=== PATIENT | female | born 1995 | race Caucasian/White ===

== ENCOUNTER 2022-06-26 00:37 | Emergency (ER) | payer OTHER, SELFPAY ==
[2022-06-26] VITALS (9 sets, daily range): BP systolic 126–129; BP diastolic 82–90; PULSE 114; RESP 20; TEMP 36.6; O2SAT 97–100
--- NOTE | 2022-06-26 00:56 | ED.URI ---
HPI - URI/Sore Throat General Chief Complaint: Upper Respiratory Infection Stated Complaint: sickness Source: patient Mode of arrival: ambulatory Limitations: no limitations History of Present Illness HPI Narrative: This is a 26-year-old female presents with 2 to 3 day history of cough congestion has headache I had tried [id number] NSAIDs to help with minimal relief, currently there is no fever chills no nausea vomiting there is no shortness of breath no abdominal pain no chest pain. MD elicited complaint: cough and nasal congestion Onset (ago): day(s) Consistency: constant Severity: moderate Description of mucous: clear Related Data Allergies Allergy/AdvReac Type Severity Reaction Status Date / Time No Known Allergies Allergy Verified 06/26/22 00:41 Review of Systems Review of Systems: All systems reviewed & are unremarkable except as noted in HPI and below PMFSH Past Medical History Medical History Patient denies medical problems Exam Const: General: healthy appearing Nutritional Appearance: well nourished HENMT: Head: normal to inspection General nose exam: Normal external nose present Face and sinus: normal facial exam Mouth: Yes Normal oral and palatal mucosa present Eyes: Conjunctivae: conjunctivae normal Neck: Neck: normal visual inspection Chest: Chest palpation & inspection: normal inspection of the chest Resp: Effort & Inspection: normal respiratory effort Cardio: Rate: regular rate Rhythm: regular rhythm GI: GI Palp: Yes Soft to palpation Urinary Catheter: Urinary Catheter: patent and draining Skin: General skin exam: normal color Rashes: no rashes Neuro: General: patient oriented x3 Extrem: General: normal to inspection Course Course Emergency Course: patient received IV Toradol for headache IV fluids and labs reviewed with patient. Vital Signs Vital signs: Vital Signs Temperature 36.6 C 06/26/22 00:38 Pulse Rate 114 H 06/26/22 00:38 Respiratory Rate 20 06/26/22 00:38 Blood Pressure 126/82 06/26/22 00:38 Pulse Oximetry 97 06/26/22 00:38 Oxygen Delivery Room Air 06/26/22 00:38 Temperature 36.6 C 06/26/22 00:38 Pulse Rate 114 H 10 00:38 Respiratory Rate 20 06/26/22 00:38 Blood Pressure 126/82 06/26/22 00:38 Pulse Oximetry 97 06/26/22 00:38 Oxygen Delivery Room Air 06/26/22 00:38 Critical Care Time Critical Care Time Critical Care Time: No Discharge Plan Discharge Clinical Impression: Upper respiratory infection Patient Disposition: Home, Self-Care Condition: Stable Instructions: Antibiotic Form, Upper Respiratory Infection (ED) Additional Instructions: take medicine as prescribed repleted fluid Tylenol or Motrin for headache and follow-up with primary care if symptoms persist or worsen. Prescriptions: New amoxicillin-pot clavulanate [Augmentin] 500-125 mg tablet 1 tablet PO TID Qty: 30 0RF tramadol [Ultram] 50 mg tablet 50 mg PO Q6H PRN (Reason: pain) Qty: 20 0RF Follow-up/Referrals: UNKNOWN,DOCTOR [Primary Care Provider] - Time of Disposition:
[2022-06-26 01:13] LABS: Basophils Absolute Auto 0.09 K/mm3 (0.00-0.10); Basophils Percent Auto 0.5 % (0.0-1.0); Eosinophils Absolute Auto 0.27 K/mm3 (0.02-0.50); Eosinophils Percent Auto 1.4 % (1.0-6.0); Hemoglobin 12.8 g/dL (12.0-15.0); Immature Granulocyte Absolute 0.09 K/mm3 (0.00-0.00); Immature Granulocyte Percent A 0.5 % (0.0-0.0); Lymphocytes Absolute Auto 2.31 K/mm3 (1.10-4.50); Lymphocytes Percent Auto 12.2 % (18.0-42.0); Mean Corpuscular HGB Conc 32.8 g/dL (32.0-36.0); Mean Corpuscular Hemoglobin 29.3 pg (27.0-31.0); Mean Corpuscular Volume 89.2 fL (78.0-102.0); Mean Platelet Volume 9.2 fl (9.2-11.8); Monocytes Absolute Auto 1.51 K/mm3 (0.10-0.90); Neutrophils Absolute Auto 14.7 K/mm3 (1.7-7.2); Neutrophils Percent Auto 77.4 % (50.0-70.0); Platelet Count Result 373 K/mm3 (150-420); Red Blood Count 4.37 M/mm3 (4.20-5.40); Red Cell Distribution Width 13.2 % (11.6-14.4)
[2022-06-26] MEDS: SODIUM CHLORIDE 0.9% IV 1,000 ML 999 ML IV CONT (01:14)
[2022-06-26] MEDS: KETOROLAC 30 MG/ML VIAL (*BKC) IV PUSH (01:14)
[2022-06-26 01:28] LABS: Alanine Aminotransferase 46 U/L (14-59); Albumin Level 3.4 g/dL (3.4-5.0); Alkaline Phosphatase 121 U/L (46-116); Anion Gap 8 mmol/L (8-16); Aspartate Amino Transferase 13 U/L (15-37); Bilirubin,Total 0.3 mg/dL (0.00-1.00); Blood Urea Nitrogen 18 mg/dL (7-18); Calcium 8.4 mg/dL (8.5-10.1); Carbon Dioxide 27 mmol/L (21-32); Chloride 107 mmol/L (98-108); Estimated Glomerular Filt Rate > 60; Glucose 109 mg/dL (70-99); Osmolality Calculated 296 mOsm/kg (285-295); Potassium 3.6 mmol/L (3.5-5.1); Sodium 142 mmol/L (136-145); Total Protein 7.4 g/dL (6.4-8.2)
[2022-06-26 02:00] LABS: Influenza A QL RT-PCR Negative (Negative); Influenza B QL RT-PCR Negative (Negative); SARS-CoV-2 RNA PCR Negative (Negative)
[2022-06-26] MEDS: cefTRIAXone 1 GM, LIDOCAINE HCL 1% LOCAL INJ 2.1 ML IM (02:29)
== END 2022-06-26 02:28 | disposition home or self-care (01) ==
PROVIDERS: Emergency Provider Emergency Medicine
DX: J06.9 Acute upper respiratory infection, unspecified (principal); Z20.822 Contact with and (suspected) exposure to COVID-19
CPT/HCPCS: 36415; 80053; 85025; 87502; 96361; 96372; 96374; 99284; C9803; J0696; J1885; J7030; U0003; U0005

== ENCOUNTER 2022-09-14 16:28 | Emergency (ER) | payer OTHER, SELFPAY ==
--- NOTE | ~2022-09-14 | XR_ITS ---
EXAMINATION: XR ankle RT min 3V INDICATION: Right ankle pain TECHNIQUE: Four views of the right ankle are obtained. COMPARISON: None available FINDINGS: There is ankle soft tissue swelling. Bone alignment is normal. There is no fracture. IMPRESSION: 1. No acute osseous abnormality. Reviewed, dictated and finalized at location F. LD RUNNER
[2022-09-14 16:30] VITALS: BP 128/78; PULSE 95; RESP 18; TEMP 36.8; O2SAT 100
[2022-09-14 17:24] LABS: Add Urine Microscopic? YES; Appearance Urine Clear (Clear); Bilirubin Urine Negative (Negative); Blood Urine Negative (Negative); Color Urine Yellow (Yellow); Glucose Urine UA Negative (Negative); Ketones Urine Negative (Negative); Leukocyte Esterase Ur Trace LEU/UL (Negative); Nitrate Urine Negative (Negative); Protein Urine Negative (Negative); Specific Grav Ur >= 1.030 (1.010-1.020); Urobilinogen Urine 0.2 mg/dL (0.2-1.0)
--- NOTE | 2022-09-14 17:24 | ED.GENADULT ---
HPI - General Adult General Chief complaint: Extremity Injury, Lower Stated complaint: right ankle pain Time Seen by Provider: 09/14/22 16:41 History of Present Illness HPI narrative: the patient is a 27-year-old woman who 2 weeks ago twisted her right ankle when she was getting out of bed. The patient developed swelling in the right ankle that subsequently resolved. Three days ago she was moving her right ankle and then developed pain again with subsequent swelling just inferior to the lateral malleolus on the right. Able to ambulate but with a limp. Has used [id number] medications and an Burke wrap without relief of her discomfort for the last 3 days. Requests ankle splint. No falls or twists. No other complaints. Related Data Allergies Allergy/AdvReac Type Severity Reaction Status Date / Time No Known Allergies Allergy Verified 09/14/22 16:34 Review of Systems Review of Systems: All systems reviewed & are unremarkable except as noted in HPI and below Constitutional: Constitutional: Reports no additional constitutional complaints, Denies anorexia, Denies body ache(s), Denies chills, Denies excessive sweating, Denies fatigue, Denies fever(s), Denies frequent falls, Denies headache(s), Denies malaise and Denies poor appetite Eyes: Eyes: Reports no additional eye complaints, Denies blurry vision, Denies change in vision, Denies irritation, Denies itchy eyes and Denies photophobia ENT: Reports system reviewed and no additional complaints, except as documented, Reports Normal hearing present, Denies change in voice, Denies dysphagia, Denies vertigo, Denies dizziness, Denies ear discharge, Denies headache(s), Denies hearing loss, Denies hoarseness, Denies nasal congestion, Denies neck pain, Denies sinus pressure, Denies sore throat and Denies throat swelling Cardiovascular: Cardiovascular: Reports no additional cardiovascular complaints, Denies chest pain, Denies syncope, Denies rapid heart rate, Denies irregular heart rhythm, Denies leg edema, Denies dyspnea and Denies slow heart rate Respiratory: Respiratory: Reports no additional respiratory complaints, Denies cough, Denies dyspnea, Denies stridor and Denies wheezing Gastrointestinal: Gastrointestinal: Reports no additional gastrointestinal complaints, Denies abdominal pain, Denies melena, Denies hematochezia, Denies dysphagia, Denies diarrhea, Denies nausea and Denies vomiting Genitourinary: Genitourinary: Denies hematuria, Denies urinary frequency, Denies dysuria, Denies flank pain and Denies urinary urgency Musculoskeletal: Musculoskeletal: Reports no additional musculoskeletal complaints, Reports abnormal gait, Denies back pain, Denies myalgias, Reports arthralgias, Reports joint swelling, Denies limited range of motion, Denies muscle cramps, Denies muscle weakness, Denies neck pain and Denies numbness Comments: right ankle swelling and pain Integumentary/Breasts: Skin/Breast: Reports system reviewed and no additional complaints, except as docu, Denies breast pain, Denies change in pigmentation, Denies pruritus, Denies erythema and Denies wounds Neurologic: Reports system reviewed and no additional complaints, except as documented, Reports Normal hearing present, Denies Abnormal speech present, Denies abnormal gait, Denies confusion, Denies vertigo, Denies dizziness, Denies syncope, Denies frequent falls, Denies headache(s), Denies focal weakness, Denies numbness and Denies paresthesias Psychiatric: Psychiatric: Reports no additional psychiatric complaints and Denies confusion Endocrine: Endocrine: Reports no additional endocrine complaints, Denies cold intolerance, Denies excessive sweating, Denies fatigue and Denies heat intolerance Hematologic/Lymphatic: Hematologic/Lymphatic: Reports no additional hematologic/lymphatic complaints, Denies easy bleeding and Denies easy bruising Allergic/Immunologic: Allergic/Immunologic: Reports no additional allergic/immunologic complaints,
[2022-09-14 17:33] LABS: Bacteria Urine 1+ /hpf; RBC Urine 0-2 /hpf (0-2); Squamous Epithelial Cell Urine Few /hpf (Few)
[2022-09-14 17:34] LABS: Pregnancy On Board Control Positive; Urine Pregnancy Test Negative
== END 2022-09-14 17:37 | disposition home or self-care (01) ==
PROVIDERS: Emergency Provider Emergency Medicine
DX: S93.401A Sprain of unspecified ligament of right ankle, initial encounter (principal); X50.0XXA Overexertion from strenuous movement or load, initial encounter
CPT/HCPCS: 73610; 81001; 81025; 99283

== ENCOUNTER 2023-02-05 14:00 | Emergency (ER) | payer OTHER, SELFPAY ==
[2023-02-05 14:05] VITALS: BP 143/82; PULSE 111; RESP 18; TEMP 36.4; O2SAT 94
--- NOTE | 2023-02-05 14:18 | ED.GENADULT ---
HPI - General Adult General Chief complaint: Urogenital-Female Stated complaint: UTI Time Seen by Provider: 02/05/23 14:13 History of Present Illness HPI narrative: The patient is a 27-year-old woman with history of hepatitis-C virus. Last menstrual period 2 weeks ago. She smokes cigarettes. She uses drugs including fentanyl. For the last 2 days, the patient has had dysuria, occasional hematuria, urinary frequency and urinary urgency. No pelvic pain or abdominal pain or flank pain or back pain. Symptoms similar to previous UTI symptoms. No fevers or chills. No nausea or vomiting. No vaginal discharge. No other complaints. Related Data Allergies Allergy/AdvReac Type Severity Reaction Status Date / Time No Known Allergies Allergy Verified 02/05/23 14:05 Review of Systems Review of Systems: All systems reviewed & are unremarkable except as noted in HPI and below Constitutional: Constitutional: Denies chills, Denies excessive sweating, Denies fatigue, Denies fever(s), Denies headache(s) and Denies weakness Eyes: Eyes: Denies change in vision and Denies photophobia ENT: Denies dysphagia, Denies dizziness, Denies headache(s), Denies lip swelling, Denies nasal congestion, Denies sore throat and Denies tongue swelling Cardiovascular: Cardiovascular: Denies chest pain, Denies syncope, Denies rapid heart rate and Denies dyspnea Respiratory: Respiratory: Denies cough, Denies dyspnea and Denies wheezing Gastrointestinal: Gastrointestinal: Denies abdominal pain, Denies constipation, Denies dysphagia, Denies diarrhea, Denies nausea and Denies vomiting Genitourinary: Genitourinary: Reports hematuria, Reports urinary frequency, Reports dysuria and Reports urinary urgency Musculoskeletal: Musculoskeletal: Denies back pain, Denies myalgias, Denies arthralgias, Denies joint swelling and Denies numbness Integumentary/Breasts: Skin/Breast: Denies pruritus, Denies erythema and Denies rash Neurologic: Denies confusion, Denies dizziness, Denies syncope, Denies headache(s), Denies focal weakness, Denies numbness and Denies weakness Psychiatric: Psychiatric: Denies anxiety and Denies confusion Endocrine: Endocrine: Denies excessive sweating and Denies fatigue Hematologic/Lymphatic: Hematologic/Lymphatic: Denies easy bleeding and Denies easy bruising Allergic/Immunologic: Allergic/Immunologic: Denies lip swelling, Denies tongue swelling and Denies wheezing PMFSH Past Medical History Medical History Patient denies medical problems Exam Const: General: healthy appearing, no acute distress, alert and well nourished Nutritional Appearance: well nourished Orientation/consciousness: patient oriented x3 Limitations: no limitations HENMT: Head: normal to inspection Ears: external ears normal Face/Nose/Sinus: normal facial exam Face and sinus: normal facial exam Mouth: Yes moist mucous membranes Throat: posterior oropharynx normal Eyes: Conjunctivae: conjunctivae normal Pupils: Equal, round and reactive pupils present EOM: EOMs intact bilaterally Neck: Neck: normal visual inspection and no meningeal signs Chest: Chest palpation & inspection: normal inspection of the chest and no tenderness Resp: Effort & Inspection: normal respiratory effort and not labored Auscultation: clear to auscultation bilaterally, no crackles, no rhonchi and no wheezes Cardio: Rate: regular rate Rhythm: regular rhythm Heart sounds: no murmurs GI: Inspection: non-distended GI Palp: Yes Soft to palpation, No Tenderness to palpation present (GI), No Guarding due to palpation present (GI) and No Rebound tenderness present : General: Yes no CVA tenderness Back/Spine/Pelvis: Back: no CVA tenderness Cervical Spine: No Cervical spine tenderness Thoracic/Lumbar Spine: No thoracic spinal tenderness Skin: General skin exam: normal color Rashes: no rashes Wounds: no wounds Neuro: General: patient
[2023-02-05 14:43] LABS: Bilirubin Urine Negative (Negative); Blood Urine 3+ (Negative); Color Urine Yellow (Yellow); Glucose Urine UA Negative (Negative); Ketones Urine Negative (Negative); Leukocyte Esterase Ur 1+ LEU/UL (Negative); Nitrate Urine Negative (Negative); Protein Urine 3+ (Negative); Specific Grav Ur >= 1.030 (1.010-1.020); Urobilinogen Urine 0.2 mg/dL (0.2-1.0)
[2023-02-05 14:51] LABS: Add Urine Microscopic? YES; Appearance Urine Turbid (Clear); Bacteria Urine 4+ /hpf; RBC Urine >75 /hpf (0-2); Squamous Epithelial Cell Urine Many /hpf (Few); WBC Urine >75 /hpf (0-3)
[2023-02-05 14:52] LABS: Pregnancy On Board Control Positive; Urine Pregnancy Test Negative
[2023-02-05] MEDS: CEPHALEXIN 500 MG CAPSULE PO (15:17)
[2023-02-05 15:31] VITALS: BP 143/82; PULSE 111; RESP 20; TEMP 36.4; O2SAT 94
--- NOTE | 2023-03-09 11:24 | PC.NURSE ---
FINAL URINE CULTURE RESULTS: GREATER THAN 100,000 CFU/ML STAPHYLOCOCCUS SAPROPHYTICUS. NO CHANGE IN TX PER DR CHÁVEZ.
== END 2023-02-05 15:32 | disposition home or self-care (01) ==
PROVIDERS: Emergency Provider Emergency Medicine
DX: N39.0 Urinary tract infection, site not specified (principal); F17.210 Nicotine dependence, cigarettes, uncomplicated
CPT/HCPCS: 81001; 81025; 87086; 87088; 99283; A9270

== ENCOUNTER 2023-10-29 16:22 | Emergency (ER) | payer OTHER, SELFPAY ==
[2023-10-29] VITALS (23 sets, daily range): BP systolic 101–122; BP diastolic 60–81; PULSE 86–132; RESP 12–24; TEMP 37.2; O2SAT 91–100
--- NOTE | ~2023-10-29 | CT_ITS ---
EXAMINATION: CT brain wo con DATE: 10/29/2023 19:27 INDICATION: syncope, head injury . TECHNIQUE: Computed tomography (CT) of the head was performed without intravenous contrast. The mA wa s adjusted according to patient size. Iterative reconstruction technique was employed. The dose-lengt h product was 605.33 mGy-cm. COMPARISON: None. FINDINGS: No acute intracranial hemorrhage or extra-axial fluid collection. No hydrocephalus, mass, or herniation. No acute ischemic infarct. Unremarkable dural venous sinus attenuation. No acute osseous abnormality. The aerated spaces are clear. IMPRESSION: No acute intracranial process. Reviewed, dictated and finalized at location K. NICS SAFETY INSPECTOR
--- NOTE | ~2023-10-29 | XR_ITS ---
EXAMINATION: XR chest 1V portable Exam Date/Time: 10/29/2023 19:32 SHEET ROLLER OPERATOR HISTORY: weakness Comparison: None. RESULT: Lines, tubes, and devices: None. Lungs and pleura: Clear. Cardiomediastinal silhouette: Normal. Other: No acute osseous or upper abdominal finding. IMPRESSION: No acute cardiopulmonary process. Reviewed, dictated and finalized at location K. T ROLLER OPERATOR
--- NOTE | ~2023-10-29 | XR_ITS ---
EXAM: XR elbow RT min 3V DATE: 10/29/2023 19:43 HISTORY: pain status post fall . COMPARISON: None available. FINDINGS: Normal mineralization. Transverse lucency through the coronoid process. No lytic or blasti c lesion. Joint spaces are maintained. No erosion or periosteal change. Soft tissues within normal li mits. IMPRESSION: Coronoid process fracture. Reviewed, dictated and finalized at location K. MOTIVE ELECTRICIAN HELPER IMPRESSION: Coronoid process fracture.
--- NOTE | 2023-10-29 19:13 | ECG_ITS ---
Measurements Intervals [place] Rate: 95 P: 74 ME: 174 QRS: 66 QRSD: 90 T: 55 QT: 360 QTc: 453 Interpretive Statements SINUS RHYTHM NORMAL ELECTROCARDIOGRAM NO PREVIOUS ECG AVAILABLE FOR COMPARISON Electronically Signed On 10-30-2023 7:39:05 ROOFING TILE SORTER by Juan Francisco Leonardo M.D.
--- NOTE | 2023-10-29 19:17 | PC.NURSE ---
Report received from NABOR Monroy. Assumed care of patient at this time.
[2023-10-29] MEDS: hydrOXYzine HCL 25 MG TABLET PO (19:35)
[2023-10-29] MEDS: SODIUM CHLORIDE 0.9% IV 1,000 ML 999 ML IV CONT (19:35)
[2023-10-29] MEDS: ONDANSETRON INJ 4 MG/2 ML VIAL IV PUSH (19:35)
[2023-10-29 20:04] LABS: Basophils Absolute Auto 0.1 K/mm3 (0.0-0.1); Basophils Percent Auto 0.5 % (0.2-1.2); Eosinophils Percent Auto 0.1 % (0-4.4); Hematocrit 35.7 % (37.0-47.0); Hemoglobin 11.5 g/dL (12.0-15.0); Immature Granulocyte Absolute 0.03 K/mm3 (0.00-0.031); Immature Granulocyte Percent A 0.3 % (0-0.5); Lymphocytes Absolute Auto 2.28 K/mm3 (0.9-3.2); Lymphocytes Percent Auto 20.6 % (18.3-44.2); Mean Corpuscular HGB Conc 32.2 g/dl (32-36); Mean Corpuscular Hemoglobin 27.4 pg (26-34); Mean Corpuscular Volume 85.2 fl (80-100); Mean Platelet Volume 9.8 fl (7.4-10.4); Monocytes Absolute Auto 0.8 K/mm3 (0.1-0.6); Monocytes Percent Auto 7.2 % (2.6-8.5); Neutrophils Absolute Auto 7.9 K/mm3 (1.3-6.7); Neutrophils Percent Auto 71.3 % (45.5-73.1); Platelet Count Result 388 k/mm3 (150-375); Red Blood Count 4.19 M/mm3 (4.2-5.4); Red Cell Distribution Width 14.2 % (11.5-14.5); White Blood Count 11.1 K/mm3 (4.5-10.0)
[2023-10-29 20:05] LABS: Alanine Aminotransferase 126 U/L (6-35); Albumin Level 4.2 g/dL (3.5-5.1); Alkaline Phosphatase 158 U/L (38-126); Anion Gap 10 mmol/L (8-16); Aspartate Amino Transferase 62 U/L (14-36); Bilirubin,Total 0.4 mg/dL (0.2-1.3); Blood Urea Nitrogen 20 mg/dL (7-17); Calcium 9.1 mg/dL (8.4-10.2); Carbon Dioxide 24 mmol/L (22-30); Chloride 109 mmol/L (98-107); Estimated CRCL calculation 115 ml/min; Estimated Glomerular Filt Rate > 60; Glucose 107 mg/dL (65-110); Potassium 3.4 mmol/L (3.4-5.0); Sodium 143 mmol/L (137-145)
--- NOTE | 2023-10-29 20:35 | ED.GENADULT ---
HPI - General Adult General Chief complaint: Fall Stated complaint: fall, head pain & right elbow Time Seen by Provider: 10/29/23 19:06 History of Present Illness HPI narrative: Patient with known year old female presents emergency department with chief complaint of fall patient reports that she is currently at [facility] and undergoing treatment for fentanyl use. The patient reports she has been sober for 7 days and reports that she has been feeling kind of lightheaded due to her withdrawal and fell striking her head and right elbow. The patient is unsure if she had loss of consciousness reports that she feels very dry and weak. Patient also reports he feels very anxious because she has not had her medications for withdrawal yet Related Data Allergies Allergy/AdvReac Type Severity Reaction Status Date / Time No Known Allergies Allergy Verified 10/29/23 16:23 Review of Systems Review of Systems: A 10 system review of systems was completed on the patient and is negative except for what is stated in the HPI. Nursing and ancillary documentation was reviewed. [facility] Past Medical History Medical History Patient denies medical problems Course Course Emergency Course: Differential diagnosis includes dehydration, electrolyte abnormality, head injury, syncope Plain film x-ray of the right elbow showed evidence of coronoid process fracture Chest x-ray showed no focal findings CT head showed no acute abnormality Laboratory studies did show some elevation in the AST and ALT but a normal bilirubin BUN was 20 Patient received a L normal saline boluses dose Atarax the patient was placed in a splint by nursing staff and was reexamined myself the patient will be discharged back to her rehab facility and should follow up with Orthopedics Vital Signs Vital signs: Vital Signs Temperature 37.2 C 10/29/23 16:24 Pulse Rate 132 H 10/29/23 16:24 Respiratory Rate 20 10/29/23 16:24 Blood Pressure 115/81 10/29/23 16:24 Pulse Oximetry 100 10/29/23 16:24 Oxygen Delivery Room Air 10/29/23 16:24 Temperature 37.2 C 10/29/23 16:24 Pulse Rate 94 10/29/23 20:30 Respiratory Rate 18 10/29/23 20:30 Blood Pressure 115/76 10/29/23 20:16 Pulse Oximetry 99 10/29/23 20:16 Oxygen Delivery Room Air 10/29/23 16:24 Medical Decision Making Vital Signs Vital Signs: Vital Signs Temperature 37.2 C 10/29/23 16:24 Pulse Rate 132 H 10/29/23 16:24 Respiratory Rate 20 10/29/23 16:24 Blood Pressure 115/81 10/29/23 16:24 Pulse Oximetry 100 10/29/23 16:24 Oxygen Delivery Room Air 10/29/23 16:24 Temperature 37.2 C 10/29/23 16:24 Pulse Rate 94 10/29/23 20:30 Respiratory Rate 18 10/29/23 20:30 Blood Pressure 115/76 10/29/23 20:16 Pulse Oximetry 99 10/29/23 20:16 Oxygen Delivery Room Air 10/29/23 16:24 Lab Data 10/29/23 19:40 10/29/23 19:40 Labs: Lab Results 10/29/23 10/29/23 Range/Units 19:40 20:50 WBC 11.1 H (4.5-10.0) K/mm3 RBC 4.19 L (4.2-5.4) M/mm3 Hgb 11.5 L (12.0-15.0) g/dL Hct 35.7 L (37.0-47.0) % MCV 85.2 (80-100) fl MCH 27.4 (26-34) pg MCHC 32.2 (32-36) g/dl RDW 14.2 (11.5-14.5) % Plt Count 388 H (150-375) k/mm3 MPV 9.8 (7.4-10.4) fl Immature Gran % (Auto) 0.3 (0-0.5) % Neut % (Auto) 71.3 (45.5-73.1) % Lymph % (Auto) 20.6 (18.3-44.2) % Dickson % (Auto) 7.2 (2.6-8.5) % Eos % (Auto) 0.1 (0-4.4) % Baso % (Auto) 0.5 (0.2-1.2) % Lymph # (Auto) 2.28 (0.9-3.2) K/mm3 Dickson # (Auto) 0.8 H (0.1-0.6) K/mm3 Eos # (Auto) 0.0 (0-0.3) K/mm3 Baso # (Auto) 0.1 (0.0-0.1) K/mm3 Abs Immat Gran (auto) 0.03 (0.00-0.031) K/mm3 Absolute Neuts (auto) 7.9 H (1.3-6.7) K/mm3 Absolute Nucleated RBC 0.0 (0.0-0.012) K/mm3 Nucleated RBC % 0.0 (0.0-0.2) % Sodium 143 (137-145) mmol
--- NOTE | 2023-10-29 20:51 | PC.NURSE ---
2048 Diana from [place] calls to get update on patient. She states to call [phone] when patient is ready for discharge she a ride can come pick her up.
[2023-10-29 21:16] LABS: Appearance Urine Cloudy (Clear); Bacteria Urine 2+ /hpf; Bilirubin Urine Negative (Negative); Blood Urine Negative (Negative); Color Urine Yellow (Yellow); Glucose Urine UA Negative (Negative); Ketones Urine Negative (Negative); Leukocyte Esterase Ur Negative LEU/UL (Negative); Need Manual Microscopic Reviewed; Nitrate Urine Negative (Negative); Non Pathogenic Casts 0-2; Protein Urine Negative (Negative); RBC Urine 0-2 /hpf (0-2); Specific Grav Ur 1.026 (1.001-1.035); Squamous Epithelial Cell Urine Many /hpf (Few); pH Urine 5.5 (5.0-9.0)
[2023-10-29 21:19] LABS: Add Urine Microscopic? YES
--- NOTE | 2023-10-29 21:31 | PC.NURSE ---
Attempted to call number that Diana from [place] gave, no answer. This RN called Crisis, spoke with Leslie, was told to call that same number or [phone] and if no answer to leave voicemail to either or both numbers.
--- NOTE | 2023-10-29 21:34 | PC.NURSE ---
Called [phone], no answer, voicemail left.
--- NOTE | 2023-10-29 21:59 | PC.NURSE ---
Called [phone], spoke with career representative. They state they will be here in a few minutes to pick patient up.
--- NOTE | 2023-11-05 05:05 | PC.NURSE ---
Late Entry [facility] 10/29/23 place Long arm splint to Right arm and sling. Placed on 10/29/23, charted in wound assessment.
== END 2023-10-29 22:11 | disposition home or self-care (01) ==
PROVIDERS: Emergency Provider Emergency Medicine
DX: S42.401A Unspecified fracture of lower end of right humerus, initial encounter for closed fracture (principal); S09.90XA Unspecified injury of head, initial encounter; N39.0 Urinary tract infection, site not specified; R55 Syncope and collapse; W19.XXXA Unspecified fall, initial encounter
CPT/HCPCS: 29105; 36415; 70450; 71045; 73080; 80053; 81001; 81025; 83735; 85025; 87086; 93005; 96361; 96374; 99284; A4565; A9270; J2405; J7030